=== PATIENT | female | born 1950 | race Hispanic/Latino ===

== ENCOUNTER 2016-06-09 12:57 | Observation (INO) | payer MEDICARE, OTHER ==
[2016-06-09 13:04] VITALS: BMI 37.0
[2016-06-09] MEDS ORDERED: Insulin Regular 1 UNITS/0.01 ML ML SC STA (13:40)
--- NOTE | 2016-06-09 13:44 | ED PDOC ---
Arrival/HPI - General Chief Complaint: Dizziness/Lightheaded Time Seen by Provider: 06/09/16 13:00 Historian: Patient - History of Present Illness Narrative History of Present Illness (Text): 06/09/16 13:26 A 66 year old female, whose past medical history includes breast cancer, diabetes, hypertension, neuropathy, Renal disease, and DKA, is sent to the emergency department from Bone scan for dizziness and nausea. Patient reports she was in the hospital told for a follow up Bone Scan and while she was laying flat she began to feel dizzy. She sat up for a while thinking the symptoms would go away but the dizziness worsened and she began to fell sweaty and developed nausea. She notes the dizziness is worse when turning his head. Patient does mention this morning when walking up she did feel more tired than usual, but she denies any fever, vomiting, appetite change, or any other complaints at this time. Patient is not a smoker, drinker or drug user. PMD: Dr. Fisher Equipment Operator [employer]: Dr. Aguilera Professor Of Biochemistry: Dr. Joel Oncologist: Dr. Rich 06/09/16 20:24 Time/Duration: Prior to Arrival Symptom Onset: Sudden Symptom Course: Unchanged Quality: Other Activities at Onset: Rest Modifying Factors (Text): worse when turning head Context: Other Associated Symptoms (Text): nausea Past Medical History - Provider Review Nursing Documentation Reviewed: Yes - Infectious Disease Hx of Infectious Diseases: None - Tetanus Immunization Tetanus Immunization: Unknown - Cardiac Hx Cardiac Disorders: Yes Hx Angina: No Hx Cardiac Arrhythmia: No Hx Circulatory Problems: No Hx Congestive Heart Failure: No Hx Heart Murmur: No Hx Heart Transplant: No Hx Hypertension: Yes Hx Internal Defibrillator: No Hx Mitral Valve Prolapse: No Hx Pacemaker: No Hx Peripheral Edema: No Hx Peripheral Vascular Disease: No - Pulmonary Hx Respiratory Disorders: Yes Hx Asthma: Yes Hx Bronchitis: No Hx Chronic Obstructive Pulmonary Disease (COPD): Yes Hx Emphysema: No Hx Pneumonia: No Hx Respiratory Aspiration: No Hx Respiratory Tract Infection: No Hx Sleep Apnea: No Hx Tuberculosis: No - Neurological Hx Neurological Disorder: No Hx Alzheimer's Disease: No HX Cerebrovascular Accident: No Hx Dementia: No Hx Dizziness: No Hx Meningitis: No Hx Migraine: No Hx Parkinson's Disease: No Hx Seizures: No Hx Transient Ischemic Attacks (TIA): No - HEENT Hx HEENT Disorder: No Hx Blind: No Hx Cataracts: No Hx Deafness: No Hx Difficulty Chewing: No Hx Epistaxis: No Hx Glaucoma: No Hx Macular Degeneration: No - Renal Hx Renal Disorder: Yes (history of nephrostomy) Hx Dialysis: No Hx Kidney Stones: No Hx Neurogenic Bladder: No Hx Pyelonephritis: No Hx Renal Cancer: No Hx Renal Failure: No - Endocrine/Metabolic Hx Endocrine Disorders: Yes Hx Adrenal Cancer: No Hx Diabetes Insipidus: No Hx Diabetes Mellitus Type 1: No Hx Diabetes Mellitus Type 2: Yes Hx Hyperthyroidism: No Hx Hypothyroidism: Yes Hx Systemic Lupus Erythematosus: No - Hematological/Oncological Hx Blood Disorders: Yes Hx AIDS: No Hx Anemia: No Hx Cancer: Yes (left breast) Hx Chemotherapy: No Hx Cirrhosis: No Hx Hemophilia: No Hx Hepatitis A: No Hx Hepatitis B: No Hx Hepatitis C: No Hx Metastasis: No Hx Shingles: No Hx Sickle Cell Disease: No Hx Unexplained Bleeding: No - Integumentary Hx Dermatological Disorder: Yes Hx Basal Cell Carcinoma: No Hx Eczema: Yes Hx Melanoma: No Hx Psoriasis: No Hx Squamous Cell Carcinoma: No - Musculoskeletal/Rheumatological Hx Musculoskeletal Disorders: Yes Hx Arthritis: No Hx Back Pain: No Hx Degenerative Joint Disease: No Hx Falls: No Hx Fractures: No Hx Gout: No Hx Herniated Disk: No Hx Myasthenia Gravis: No Hx Osteoarthritis: Yes (knees hips) Hx Osteomyelitis: No Hx Osteoporosis: No Hx Rhabdomyolysis: No Hx Spinal Stenosis: No Hx Unsteady Gait: No - Gastrointestinal Hx Gastrointestinal Disorders: Yes Hx Colostomy: No Hx Crohn's Disease: No Hx Diverticulitis: No Hx Gall Bladder Disease: No Hx Gastroesophageal Reflux: Yes Hx Gastrointestinal Ulcer: No Hx Ileostomy: No Hx Liver Failure: No Hx Pancreatitis: No HX Swallowing Problems: No - Genitourinary/Gynecological Hx Genitourinary Disorders: Yes Hx Hematuria: No Hx Incontinence: Yes (occassional at night) Hx Prostate Problems: No Hx Sexually Transmitted Diseases: No Hx Urinary Tract Infection: No - Psychiatric Hx Psychophysiologic Disorder: No Hx Anxiety: No Hx Bipolar Disorder: No Hx Depression: No Hx Emotional Abuse: No Hx Hallucinations: No Hx Panic Disorder: No Hx Post Traumatic Stress Disorder: No Hx Psychosis: No Hx Physical Abuse: No Hx Schizophrenia: No Hx Sexual Abuse: No Hx Substance Use: No - Past Surgical History Past Surgical History: No Previous - Surgical History Hx Amputation: No Hx Appendectomy: No Hx Cardiac Catheterization: No Hx Cholecystectomy: No Hx Coronary Stent: No Hx Gastric Bypass Surgery: No Hx Hysterectomy: No Hx Joint Replacement: No Hx Kidney Transplant: No Hx Liver Transplant: No Hx Mastectomy: No Hx Musculoskeletal Surgery: No Hx Open Heart Surgery: No Hx Orthopedic Surgery: No Hx Splenectomy: No Hx Tonsillectomy: Yes Hx Valve Replacement: No - Anesthesia Hx Anesthesia: No Hx Anesthesia Reactions: No Hx Malignant Hyperthermia: No - Suicidal Assessment Feels Threatened In Home Enviroment: No Family/Social History - Physician Review Nursing Documentation Reviewed: Yes Family/Social History: Unknown Family HX Smoking Status: Former Smoker Hx Alcohol Use: No Hx Substance Use: No Hx Substance Use Treatment: No Allergies/Home Meds Allergies/Adverse Reactions: Allergies No Known Allergies Allergy (Verified 06/09/16 13:14) Home Medications: Home Meds Medication Instructions Recorded Confirmed Dexlansoprazole [Dexilant] 01/22/14 01/22/14 Insulin Detemir [Levemir Flexpen] 34 unit SC 01/22/14 01/22/14 Ondansetron [Zofran Tab] 4 mg 01/22/14 01/22/14 Pravastatin Sodium [Pravastatin] 20 mg PO HS 01/22/14 01/23/14 Pregabalin [Lyrica] 50 mg PO TID 01/22/14 01/23/14 Carvedilol 12.5 mg PO 01/23/14 01/23/14 Carvedilol 12.5 mg PO BID 01/23/14 01/23/14 Dexlansoprazole [Dexilant] 60 mg PO DAILY 01/23/14 01/23/14 HCTZ/Losartan Potassium [Hyzaar 1 tab PO 01/23/14 01/23/14 12.5 mg-50 mg] Metoclopramide HCl [Reglan] 5 mg PO AMHS 01/23/14 01/23/14 Mometasone [Asmanex Twisthaler 110 01/23/14 01/23/14 MCG] Montelukast [Singulair] 10 mg PO DAILY 01/23/14 01/23/14 Ropinirole HCl [Ropinirole ER] 2 mg PO HS 01/23/14 01/23/14 Review of Systems - Physician Review All systems were reviewed & negative as marked: Yes - Review of Systems Constitutional: absent: Fevers Gastrointestinal: Nausea. absent: Vomiting, Appetite Changes Neurological: Dizziness Endocrine: Diaphoresis Physical Exam Vital Signs Reviewed: Yes Vital Signs Temp Pulse Resp BP Pulse Ox 06/09/16 17:00 66 18 166/81 H 96 06/09/16 15:45 69 18 168/89 H 96 06/09/16 12:58 97.8 F 74 17 176/91 H 96 Temperature: Afebrile Blood Pressure: Hypertensive Pulse: Regular Respiratory Rate: Normal Appearance: Positive for: Well-Appearing, Non-Toxic, Comfortable Pain Distress: None Mental Status: Positive for: Alert and Oriented X 3 Finger Stick Blood Glucose: 389 - Systems Exam Head: Present: Atraumatic, Normocephalic Pupils: Present: Other (cataract left eye) Extroacular Muscles: Present: EOMI Conjunctiva: Present: Normal Mouth: Present: Moist Mucous Membranes Neck: Present: Normal Range of Motion Respiratory/Chest: Present: Clear to Auscultation, Good Air Exchange. No: Respiratory Distress, Accessory Muscle Use Cardiovascular: Present: Regular Rate and Rhythm, Normal S1, S2. No: Murmurs Abdomen: Present: Normal Bowel Sounds. No: Tenderness, Distention, Peritoneal Signs Back: Present: Normal Inspection Upper Extremity: Present: Normal Inspection. No: Cyanosis, Edema Lower Extremity: Present: Normal Inspection. No: Edema Neurological: Present: GCS=15, CN II-XII Intact, Speech Normal Skin: Present: Warm, Dry, Normal Color. No: Rashes Psychiatric: Present: Alert, Oriented x 3, Normal Insight, Normal Concentration Medical Decision Making ED Course and Treatment: 06/09/16 13:26 Impression: A 66 year old female with dizziness and nausea. Differential Diagnosis include but are not limited to: vertigo vs. electrolyte imbalance vs. intracranial abnormalities Plan: -- EKG -- Head CT -- Chest X-ray -- Labs -- Urinalysis -- Antivert, Humulin R, Zofran and IV Fluids -- Reassess and disposition Prior Visits: Notes and results from previous visits were reviewed. The patient last presented to the emergency department on 01/22/14 for evaluation of intermittent abdominal pain and nausea. Progress Notes: EKG: Ordered, reviewed, and independently interpreted the EKG. Rate : 72 BPM Rhythm : NSR 06/09/16 14:[address]: Creator : Consuelo Barreto MD COMPARISON: None available. FINDINGS: HEMORRHAGE: No intracranial hemorrhage. BRAIN: There are mild chronic microangiopathic changes. There is no mass, mass effect or abnormal extra-axial fluid collection. There are coarse atherosclerotic calcifications in the cavernous carotid arteries. VENTRICLES: There is moderate global parenchymal volume loss and proportionate enlargement of the ventricles and cortical sulci, slightly advanced for the patient's age. CALVARIUM: The skull base and calvarium are normal. PARANASAL SINUSES: Predominantly clear. MASTOID AIR CELLS: Predominantly clear. OTHER FINDINGS: None. IMPRESSION: No acute intracranial abnormality. 06/09/16 15:50 Chest X-ray: Creator : Nito Salinas MD COMPARISON: 01/22/2014 FINDINGS: LUNGS: No active pulmonary disease. PLEURA: No significant pleural effusion identified, no pneumothorax apparent. CARDIOVASCULAR: Normal. OSSEOUS STRUCTURES: No significant abnormalities. VISUALIZED UPPER ABDOMEN: Normal. OTHER FINDINGS: None. IMPRESSION: No active disease. 06/09/16 16:24 Dr. Fisher paged. 06/09/16 17:[address] Fisher, who is aware and agrees with the plan to place patient in observation in Telemetry. He states to get a second set of Troponin which is ordered. pt made aware of plan. pt reevaluated, feeels slightly improved but still w symptoms dx presycnope I have discussed the results and plan with the patient, who expresses understanding. Patient given the opportunity to ask question, all questions were answered and there is agreement with the plan to be admitted to the hospital. 06/09/16 20:25 06/09/16 20:26 - Lab Interpretations Lab Results: 06/09/16 13:17 06/09/16 13:17 Lab Results 06/09/16 17:03: Blood Type Confirm A POSITIVE 06/09/16 15:34: Blood Type A POSITIVE, Antibody Screen Negative, BBK History Checked No verified bt 06/09/16 13:17: WBC 7.9 D, RBC 4.62, Hgb 14.2, Hct 41.6, MCV 90.0, MCH 30.7, MCHC 34.1, RDW 13.2, Plt Count 204, MPV 11.5 H, Gran % 60.9, Lymph % (Auto) 31.0 , [place] % (Auto) 6.2 H, Eos % (Auto) 1.6, Baso % (Auto) 0.3, Gran # 4.80, Lymph # 2.4, [place] # 0.5, Eos # 0.1, Baso # 0.02, PT 9.8 L, INR 0.91 L, APTT 19.9 L, Sodium 136, Potassium 4.3, Chloride 97 L, Carbon Dioxide 26, Anion Gap 17, BUN 31 H, Creatinine 1.4, Est GFR ( Amer) 45, Est GFR (Non-Af Amer) 38, Random Glucose 335 H* D, Calcium 9.2, Total Bilirubin 0.7, AST 30, ALT 38, Alkaline Phosphatase 156 H, Troponin I < 0.01 D, Total Protein 7.8, Albumin 4.1 , Globulin 3.6, Albumin/Globulin Ratio 1.1 I have reviewed the lab results: Yes - RAD Interpretation Radiology Orders: 06/09/16 13:37 CHEST PORTABLE [RAD] Stat 06/09/16 13:38 HEAD W/O CONTRAST [CT] Stat - Medication Orders Current Medication Orders: Atorvastatin Calcium (Lipitor) 10 mg PO DIN [facility] Carvedilol (Coreg) 12.5 mg PO BID [facility] Hydrochlorothiazide (Microzide) 12.5 mg PO DAILY [facility] Sodium Chloride (Sodium Chloride 0.9%) 1,000 mls @ 150 mls/hr IV .Q6H40M [facility] Last Admin: 06/09/16 14:05 Dose: 150 MLS/HR eMAR Start Stop Document 06/09/16 14:05 OCS (Rec: 06/09/16 14:05 OCS [facility] [id number]) Intravenous Solution Start Date 06/09/16 Start Time 14:05 Insulin Detemir (Levemir) 34 unit SC ACBHS [facility] Insulin Human Regular (Humulin R High) 0 units SC ACHS [facility] PRN Reason: Protocol Losartan Potassium (Cozaar) 50 mg PO DAILY [facility] Metoclopramide HCl (Reglan) 5 mg PO AMHS [facility] Montelukast Sodium (Singulair) 10 mg PO DAILY [facility] Ondansetron HCl (Zofran Tab) 4 mg PO ACBHS PRN PRN Reason: Nausea/Vomiting Pantoprazole Sodium (Protonix Ec Tab) 40 mg PO ACB [facility] Pregabalin (Lyrica) 50 mg PO TID [facility] Ropinirole HCl (Requip) 2 mg PO HS [facility] Discontinued Medications Insulin Human Regular (Humulin R) 4 units SC STAT STA Stop: 06/09/16 13:41 Last Admin: 06/09/16 14:05 Dose: 4 UNITS Subcutaneous Admin in ER Document 06/09/16 14:05 OCS (Rec: 06/09/16 14:[address] [facility] [id number][place] Injection Site MAR Injection Site Right Deltoid Subcutaneous Administrations Document 06/09/16 14:05 OCS (Rec: 06/09/16 14:05 OCS [facility] [id number]) Charges for Administration # of Subcutaneous Administrations 1 Meclizine HCl (Antivert) 25 mg PO STAT STA Stop: 06/09/16 13:40 Last Admin: 06/09/16 14:05 Dose: 25 MG Ondansetron HCl (Zofran Inj) 4 mg IV ONCE ONE Stop: 06/09/16 13:40 Last Admin: 06/09/16 14:05 Dose: 4 MG eMAR Start Stop Document 06/09/16 14:05 OCS (Rec: 06/09/16 14:05 [id number]) Intravenous Solution Start Date 06/09/16 Start Time 14:05 End Date 06/09/16 - Scribe Statement The provider has reviewed the documentation as recorded by the Kartik Pelayo Provider Scribe Attestation: All medical record entries made by the Scribe were at my direction and personally dictated by me. I have reviewed the chart and agree that the record accurately reflects my personal performance of the history, physical exam, medical decision making, and the department course for this patient. I have also personally directed, reviewed, and agree with the discharge instructions and disposition. Disposition/Present on Arrival - Present on Arrival Any Indicators Present on Arrival: No History of DVT/PE: No History of Uncontrolled Diabetes: No Urinary Catheter: No History of Decub. Ulcer: No History Surgical Site Infection Following: None - Disposition Have Diagnosis and Disposition been Completed?: Yes Diagnosis: Pre-syncope Disposition Time: 15:40 Patient Plan: Observation Condition: STABLE
[2016-06-09 13:45] LABS: ADD MANUAL DIFF? NO
--- NOTE | 2016-06-09 13:55 | CP.PCM.PN ---
Subjective - Date & Time of Evaluation Date of Evaluation: 06/09/16 Time of Evaluation: 13:52 - Subjective Subjective: ARCH SUPPORT MAKER was called at 12:50 pm in radiology department. 66 y/o female who presented for outpatient bone scan for breast cancer. At the end of the scan, patient was lying down and became dizzy and nauseous. ARCH SUPPORT MAKER was called at this point. Patient also has insulin dependent diabetes and accucheck showed BS of 390. During examination, patient denied any lightheadedness of dizziness, chest pain, shortness of breath or abdominal pain. She continued to have nausea but did not vomit. VS: 201/91, 26, 81 Objective - Vital Signs/Intake and Output Vital Signs (last 24 hours): Temp Pulse Resp BP Pulse Ox 97.8 F 74 17 176/91 H 96 06/09/16 12:58 06/09/16 12:58 06/09/16 12:58 06/09/16 12:58 06/09/16 12:58 - Medications Medications: Current Medications Sodium Chloride (Sodium Chloride 0.9%) 1,000 mls @ 150 mls/hr IV .Q6H40M [facility] - Constitutional Appears: No Acute Distress - ENT Exam ENT Exam: Mucous Membranes Moist - Respiratory Exam Respiratory Exam: Clear to Ausculation Bilateral. absent: Rales, Rhonchi, Wheezes - Cardiovascular Exam Cardiovascular Exam: REGULAR RHYTHM, +S1, +S2. absent: Gallop, Rubs, Murmur - GI/Abdominal Exam GI & Abdominal Exam: Soft. absent: Distended, Firm, Guarding, Rigid, Tenderness - Extremities Exam Extremities Exam: absent: Pedal Edema, Tenderness - Neurological Exam Neurological Exam: Alert, Awake, Oriented x3 - Psychiatric Exam Psychiatric exam: Normal Affect, Normal Mood - Skin Skin Exam: Dry, Intact, Normal Color, Warm Assessment and Plan - Assessment and Plan (Free Text) Assessment: 1. Dizziness 2. Nausea 3. HTN 4. Hyperglycemia 5. History of DM Plan: Patient is transferred to ED with the RR team.
[2016-06-09 13:58] LABS: ALB/GLOB RATIO 1.1 (1.1-1.8); ALKALINE PHOSPHATASE 156 U/L (38-133); ALT/SGPT 38 U/L (7-56); AST/SGOT 30 U/L (15-39); BILIRUBIN,TOTAL 0.7 mg/dL (0.2-1.3); BLOOD UREA NITROGEN 31 mg/dL (7-21); CALCIUM 9.2 mg/dL (8.4-10.5); CARBON DIOXIDE 26 mmol/L (21-33); CHLORIDE 97 mmol/L (98-107); GFR AFRICAN-AMERICAN 45; POTASSIUM 4.3 mmol/L (3.6-5.0); SODIUM 136 mmol/L (132-148); TOTAL PROTEIN 7.8 g/dL (5.8-8.3)
[2016-06-09 14:01] LABS: BASO # 0.02 K/mm3 (0.0-2.0); BASO % 0.3 % (0.0-3.0); EOS # 0.1 (0.0-0.7); EOS % 1.6 % (1.5-5.0); GRAN % 60.9 % (50.0-68.0); HEMATOCRIT 41.6 % (36.0-48.0); LYMPH # 2.4 (1.2-3.4); MEAN CORPUSCULAR HEMOGLOBIN 30.7 pg (25.0-35.0); MEAN CORPUSCULAR HGB CONC 34.1 g/dl (31.0-37.0); MEAN PLATELET VOLUME 11.5 fl (7.0-11.0); MONO # 0.5 (0.1-0.6); MONO % 6.2 % (1.0-6.0); PLATELET COUNT 204 10^3/uL (120.0-450.0); RED CELL DISTRIBUTION WIDTH 13.2 % (11.5-14.5); WHITE BLOOD COUNT 7.9 10^3/ul (4.5-11.0)
[2016-06-09 14:02] LABS: GLUCOSE,RANDOM 335 mg/dL (70-110)
[2016-06-09] MEDS: Sodium Chloride 0.9% 1,000 ML IV SCH ×2 (14:05→22:59)
[2016-06-09 14:11] LABS: TROPONIN I < 0.01 ng/mL
[2016-06-09 14:14] LABS: INR 0.91 (0.93-1.08); PARTIAL THROMBOPLASTIN TIME 19.9 Seconds (23.7-30.8)
--- NOTE | 2016-06-09 14:31 | CT ---
PROCEDURE: CT HEAD WITHOUT CONTRAST. HISTORY: Dizziness COMPARISON: None available. TECHNIQUE: Axial computed tomography images were obtained through the head/brain without intravenous contrast. Radiation dose: Total exam DLP = 789.71 mGy-cm. This CT exam was performed using one or more of the following dose reduction techniques: Automated exposure control, adjustment of the mA and/or kV according to patient size, and/or use of iterative reconstruction technique. FINDINGS: HEMORRHAGE: No intracranial hemorrhage. BRAIN: There are mild chronic microangiopathic changes. There is no mass, mass effect or abnormal extra-axial fluid collection. There are coarse atherosclerotic calcifications in the cavernous carotid arteries. VENTRICLES: There is moderate global parenchymal volume loss and proportionate enlargement of the ventricles and cortical sulci, slightly advanced for the patient's age. CALVARIUM: The skull base and calvarium are normal. PARANASAL SINUSES: Predominantly clear. MASTOID AIR CELLS: Predominantly clear. OTHER FINDINGS: None. IMPRESSION: No acute intracranial abnormality.
--- NOTE | 2016-06-09 14:47 | RAD ---
HISTORY: dizziness COMPARISON: 01/22/2014 FINDINGS: LUNGS: No active pulmonary disease. PLEURA: No significant pleural effusion identified, no pneumothorax apparent. CARDIOVASCULAR: Normal. OSSEOUS STRUCTURES: No significant abnormalities. VISUALIZED UPPER ABDOMEN: Normal. OTHER FINDINGS: None. IMPRESSION: No active disease.
[2016-06-09] MEDS: Insulin Detemir 100 units/ml Vial (Levemir) SC SCH (22:11)
[2016-06-09] MEDS: Insulin Reg-HIGH-Coverage SC SCH (22:12)
--- NOTE | 2016-06-09 23:47 | CP.PCM.PN ---
Subjective - Date & Time of Evaluation Date of Evaluation: 06/09/16 Time of Evaluation: 23:46 - Subjective Subjective: Nurse tells that patient's BP is elevated -181/82. Patient is little upset , has no complaints of headache,dizziness,heaviness in head, lightheadedness, chest pain, sob, paraesthesia. States that she did not take her routine evening blood pressure medications. Medical record was reviewed. This 66 year old white woman was admitted from bone scan for nausea, dizziness , presyncope. Has PMH of DM type II, DKA, HTN,breast cancer, Obesity, Hyperthyroidism, neuropathy, knee arthritis, GERD,renal failure. Objective - Vital Signs/Intake and Output Vital Signs (last 24 hours): Temp Pulse Resp BP Pulse Ox 97.8 F 82 18 181/82 H 98 06/09/16 12:58 06/09/16 22:11 06/09/16 21:00 06/09/16 22:11 06/09/16 21:00 - Medications Medications: Current Medications Atorvastatin Calcium (Lipitor) 10 mg PO DIN [facility] Carvedilol (Coreg) 12.5 mg PO BID [facility] Hydrochlorothiazide (Microzide) 12.5 mg PO DAILY [facility] Sodium Chloride (Sodium Chloride 0.9%) 1,000 mls @ 150 mls/hr IV .Q6H40M [facility] Last Admin: 06/09/16 22:59 Dose: Not Given Insulin Detemir (Levemir) 34 unit SC ACBHS [facility] Last Admin: 06/09/16 22:11 Dose: 34 unit Insulin Human Regular (Humulin R High) 0 units SC ACHS [facility] PRN Reason: Protocol Last Admin: 06/09/16 22:12 Dose: Not Given Losartan Potassium (Cozaar) 50 mg PO DAILY [facility] Metoclopramide HCl (Reglan) 5 mg PO AMHS [facility] Last Admin: 06/09/16 22:10 Dose: 5 mg Montelukast Sodium (Singulair) 10 mg PO DAILY [facility] Ondansetron HCl (Zofran Tab) 4 mg PO ACBHS PRN PRN Reason: Nausea/Vomiting Pantoprazole Sodium (Protonix Ec Tab) 40 mg PO ACB [facility] Pregabalin (Lyrica) 50 mg PO TID [facility] Ropinirole HCl (Requip) 2 mg PO HS [facility] Last Admin: 06/09/16 22:10 Dose: 2 mg - Labs Labs: PT 9.8 Seconds (9.9-11.8) L 06/09/16 13:17 INR 0.91 (0.93-1.08) L 06/09/16 13:17 APTT 19.9 Seconds (23.7-30.8) L 06/09/16 13:17 - Constitutional Appears: Well, No Acute Distress - Head Exam Head Exam: ATRAUMATIC, NORMAL INSPECTION, NORMOCEPHALIC Additional comments: Obese person. - Eye Exam Eye Exam: Normal appearance - ENT Exam ENT Exam: Normal External Ear Exam - Neck Exam Neck Exam: Normal Inspection - Respiratory Exam Respiratory Exam: NORMAL BREATHING PATTERN - Cardiovascular Exam Cardiovascular Exam: absent: JVD - GI/Abdominal Exam GI & Abdominal Exam: absent: Distended - Rectal Exam Rectal Exam: Deferred - Extremities Exam Extremities Exam: Normal Inspection - Back Exam Back Exam: NORMAL INSPECTION - Neurological Exam Neurological Exam: Alert, Oriented x3 - Psychiatric Exam Psychiatric exam: Normal Affect, Normal Mood - Skin Skin Exam: Normal Color Assessment and Plan - Assessment and Plan (Free Text) Assessment: A/P:Elevated blood pressure reading. Resolved nausea,dizziness. HTN. DM type II. Obesity. Knee arthritis. Hyperlipidemia. Hyperthyroidism. Hx renal failure. GERD. Coreg 12.5 mg PO STAT. Clonidine 0.2 mg PO STAT. Continue present management.
[2016-06-10] MEDS: Sodium Chloride 0.9% 1,000 ML IV SCH (04:13)
[2016-06-10 06:11] VITALS: O2SAT 93
[2016-06-10] MEDS ORDERED: Non Formulary Medication (Hctz/Losartan Potassium [Hyzaar 12.5 Mg-50 Mg] 1 TAB) PO SCH (07:30)
[2016-06-10] MEDS ORDERED: Pantoprazole 40 mg EC Tab PO SCH (07:30)
[2016-06-10] MEDS: Insulin Reg-HIGH-Coverage SC SCH ×2 (08:06→12:14)
[2016-06-10] MEDS: Insulin Detemir 100 units/ml Vial (Levemir) SC SCH (08:07)
[2016-06-10] MEDS ORDERED: Sodium Chloride 0.9% 1,000 ML IV SCH (08:27)
--- NOTE | 2016-06-10 09:55 | HP ---
HISTORY OF PRESENT ILLNESS: A 66-year-old white female with history of breast cancer, insulin-depend ent diabetes mellitus and hypertension. The patient came in complaining of severe nausea, vomiting a nd dizziness. The patient was seen in the ER, had a CT of the head done, laboratory data, 2 troponin s, EKGs all negative. The patient still had severe vertiginous symptoms and was not able to stand wi thout falling; had severe nausea and vomiting, was admitted to the hospital, was hydrated and treated with meclizine. PHYSICAL EXAMINATION: GENERAL: Shows a well-developed, but obese white female with hyperglycemia. She has bilateral strab ismus and otherwise she is more comfortable the following morning. HEENT: Essentially within normal limits. HEART: Regular sinus rhythm, no murmurs. CHEST: Clear to auscultation and percussion. ABDOMEN: Obese, but benign. EXTREMITIES: Without cyanosis, clubbing or edema. NEUROLOGIC: Grossly intact except for some positive Romberg sign. PLAN: To continue meclizine, hydrate the patient, control her blood sugars and start some physical t herapy. Discharge home if she is tolerating her therapy and able to keep down liquids and solids. IMPRESSION: Severe vertigo and hyperglycemia. REVIEW OF SYSTEMS: A 12-point review of systems otherwise is remarkable only for nausea and dizzines s. Symptoms started approximately 1 day, the day of admission. The patient has no history of tobacco or alcohol abuse and she has no contributing family history. Niko Fisher MD cc: [id number] TT: 06/10/2016 09:53:58 il
[2016-06-10 14:00] VITALS: RESP 18
[2016-06-10 17:57] VITALS: BP 160/72; PULSE 75; TEMP 97.6
--- NOTE | 2016-06-10 18:20 | CARD ---
APPROVED REPORT EKG Measurement Heart [id number] <Conclusion> Normal sinus rhythm Normal ECG
--- NOTE | 2016-06-30 10:32 | DS ---
The patient is a 66-year-old white female admitted on 06/09/16, discharged home on 06/10/16. The patie nt came to the Emergency Room. The patient had history of breast cancer, diabetes, hypertension, oumar al disease came to the Emergency Room from bone scan after having dizziness and nausea. She was lyin g flat and became dizzy. Symptoms worsened and she became sweaty, and was sent from the bone scan to the Emergency Room for evaluation. The patient was admitted to the hospital. Her oncologist is Dr. Rich. Her medical support specialist is Dr. Daysi copeland, and she also sees Dr. Aguilera for her nephrology. The [facility] was [facility]. Blood pressure was controlled. Nausea and vomiting slowly subsided over time. The patient did have a CT of the head done, which was unremarkable and negative. LABORATORY DATA: Remained stable with hemoglobin 14.2. Blood sugars were controlled in the low 200s -high 100 range. The troponins were negative. Eventually, the patient's symptoms subsided. She will be discharged home in improved condition. FINAL DISCHARGE DIAGNOSES: On this patient will be vertigo, history of breast cancer, diabetes vivii tus, renal insufficiency, hypertension. The patient was discharged home in improved condition to be followed as an outpatient. FINAL DISCHARGE DIAGNOSES: Vertigo and comorbid medical conditions. Niko Fisher MD cc: [id number] TT: 06/30/2016 10:32:10 jn
== END 2016-06-10 17:58 | disposition home or self-care (01) ==
LOC: ED 12:57 → ERH 17:19 → 2RNO 21:24
PROVIDERS: ADMIT Internal Medicine; ATTEND Internal Medicine
DX: E11.65 Type 2 diabetes mellitus with hyperglycemia (principal); R42 Dizziness and giddiness; Z85.3 Personal history of malignant neoplasm of breast; I10 Essential (primary) hypertension; E11.40 Type 2 diabetes mellitus with diabetic neuropathy, unspecified; M17.9 Osteoarthritis of knee, unspecified; K21.9 Gastro-esophageal reflux disease without esophagitis; E66.9 Obesity, unspecified; E05.90 Thyrotoxicosis, unspecified without thyrotoxic crisis or storm; E78.5 Hyperlipidemia, unspecified
CPT/HCPCS: 70450; 71010; 80053; 84484; 85025; 85610; 85730; 86850; 86900; 93005; 96372; 97116; 97162; 99285; G0378; G8978; G8979; G8980; J2405; J7040

== ENCOUNTER 2018-01-19 12:13 | Day surgery (SDC) | payer MEDICARE, OTHER ==
[2018-01-04 13:47] VITALS: BMI 39.5
[2018-01-19 12:55] LABS: BASO # 0.03 K/mm3 (0.0-2.0); BASO % 0.7 % (0.0-3.0); EOS # 0.1 (0.0-0.7); EOS % 3.2 % (1.5-5.0); GRAN # 2.72 (1.4-6.5); GRAN % 66.8 % (50.0-68.0); HEMOGLOBIN 12.2 g/dL (12.0-16.0); LYMPH # 0.7 (1.2-3.4); LYMPH % 18.2 % (22.0-35.0); MEAN CORPUSCULAR HEMOGLOBIN 34.5 pg (25.0-35.0); MEAN CORPUSCULAR HGB CONC 33.8 g/dl (31.0-37.0); MEAN PLATELET VOLUME 10.3 fl (7.0-11.0); MONO # 0.5 (0.1-0.6); MONO % 11.1 % (1.0-6.0); RBC 3.54 10^6/uL (3.5-6.1); RED CELL DISTRIBUTION WIDTH 15.1 % (11.5-14.5); WHITE BLOOD COUNT 4.1 10^3/uL (4.5-11.0)
[2018-01-19 13:03] LABS: CALCIUM 9.5 mg/dL (8.4-10.5)
[2018-01-19 13:04] LABS: INR 0.93; PARTIAL THROMBOPLASTIN TIME 24.5 Seconds (25.1-36.5); PROTHROMBIN TIME 10.7 SECONDS (9.4-12.5)
[2018-01-19] MEDS ORDERED: Lidocaine 2% Inj (20ml) ONE (14:02)
[2018-01-19] MEDS ORDERED: Midazolam 2 MG/2 ML VIAL ONE ×2 (14:41→14:51)
[2018-01-19] MEDS ORDERED: Sodium Chloride 0.45% 1,000 ML IV SCH (15:45)
[2018-01-19 15:51] VITALS: TEMP 98
[2018-01-19 16:32] VITALS: RESP 18; O2SAT 94
[2018-01-19 16:57] VITALS: BP 146/74; PULSE 80
--- NOTE | 2018-01-19 17:49 | VASCULAR ---
PROCEDURE: Ultrasound and fluoroscopic right internal jugular venous access port. CLINICAL HISTORY: Metastatic breast carcinoma.Venous port for chemotherapy. PHYSICIAN(S): Toby Garcia M.D. TECHNIQUE: The relative risks and indications of the procedure were explained to the patient and consent obtained. The patient was placed supine on the arteriogram table and the right neck and chest prepped and draped in the usual sterile fashion. Conscious sedation monitoring was provided throughout the procedure by a nurse. Antibiotics were given prior to the procedure. Under direct ultrasound guidance, the right internal jugular vein was punctured with a micro-puncture set. A 0.035 angled Glidewire was advanced into the IVC. A 4 cm incision was made over the right clavicle and the pocket blunted dissected. A 8 Tristanian single-lumen catheter, 26 cm long, was advanced to the SVC/RA junction. The catheter was trimmed and attached to the port. The port aspirates and injects easily. The port was placed in the pocket and closed in 2 layers. The patient tolerated the procedure well. IMPRESSION: Ultrasound and fluoroscopically placed right internal jugular venous access port.
== END 2018-01-19 17:15 | disposition home or self-care (01) ==
LOC: SDS 12:13
PROVIDERS: ATTEND Radiology Vascular & Interventional Radiology
DX: C50.912 Malignant neoplasm of unspecified site of left female breast (principal); C79.51 Secondary malignant neoplasm of bone; I10 Essential (primary) hypertension; E78.5 Hyperlipidemia, unspecified; K21.9 Gastro-esophageal reflux disease without esophagitis; E11.9 Type 2 diabetes mellitus without complications; Z79.4 Long term (current) use of insulin
CPT/HCPCS: 36415; 36561; 76937; 77001; 80048; 85025; 85610; 85730; 99152; 99153; C1769; C1788; J0690; J1644; J2250; J2405; J3010; J7030; J7120

== ENCOUNTER 2018-02-27 10:40 | Inpatient (IN) | payer MEDICARE, OTHER ==
[2018-02-27 10:58] VITALS: BMI 38.0
[2018-02-27] MEDS ORDERED: Sodium Chloride 0.9% 1,000 ML IV STA (11:29)
--- NOTE | 2018-02-27 11:32 | ED PDOC ---
Arrival/HPI - General Chief Complaint: Weakness/Neurological Deficit Time Seen by Provider: 02/27/18 10:56 Historian: Patient - History of Present Illness Narrative History of Present Illness (Text): 02/27/18 11:29 67 year old female, whose past medical history includes breast cancer (receiving chemotherapy), diabetes, hypertension, neuropathy, Renal disease, and DKA, is sent to the emergency department from Dr. Rich's office for generalized weakness and a hypoglycemia since yesterday. Patient had a blood sugar level of 55 and was given Gingerale and a donut at Dr. Rich's office. Patient states she has been feeling weak since yesterday and states her legs feel "rubbery" and "shaky". She reports secondary symptoms of shortness of breath, diarrhea, nausea, and loss of appetite due to her chemotherapy. Patient denies fevers, chills, headache, dizziness, chest pain, cough, abdominal pain, vomiting, back pain, neck pain, or any other complaint. PMD: Dr. Fisher Retail Warehouse Supervisor: Dr. Singh Enrollment Management Coordinator: Dr. Joel Oncology: Dr. Espinoza Time/Duration: 24 hours Symptom Onset: Gradual Symptom Course: Unchanged Activities at Onset: Light Context: Home Past Medical History - Provider Review Nursing Documentation Reviewed: Yes - Infectious Disease Hx of Infectious Diseases: None - Tetanus Immunization Tetanus Immunization: Unknown - Reproductive Menopause: Yes - Cardiac Hx Hypertension: Yes - Pulmonary Hx Chronic Obstructive Pulmonary Disease (COPD): Yes - Neurological Hx Paralysis: Yes - HEENT Hx HEENT Disorder: Yes Hx Blind: No Hx Cataracts: Yes - Renal Hx Renal Failure: No - Endocrine/Metabolic Hx Diabetes Mellitus Type 2: Yes Hx Hypothyroidism: Yes - Hematological/Oncological Hx Blood Transfusions: No - Integumentary Hx Dermatological Disorder: Yes Hx Eczema: Yes - Musculoskeletal/Rheumatological Hx Musculoskeletal Disorders: Yes - Gastrointestinal Hx Gastrointestinal Disorders: Yes Hx Gastroesophageal Reflux: Yes - Genitourinary/Gynecological Hx Genitourinary Disorders: Yes - Psychiatric Hx Emotional Abuse: No Hx Physical Abuse: No Hx Substance Use: No - Past Surgical History Past Surgical History: No Previous - Surgical History Hx Amputation: No Hx Appendectomy: No Hx Cardiac Catheterization: No Hx Cholecystectomy: No Hx Coronary Stent: No Hx Gastric Bypass Surgery: No Hx Hysterectomy: No Hx Inguinal Hernia Repair: No Hx Joint Replacement: No Hx Kidney Transplant: No Hx Liver Transplant: No Hx Mastectomy: No Hx Musculoskeletal Surgery: No Hx Open Heart Surgery: No Hx Orthopedic Surgery: No Hx Splenectomy: No Hx Valve Replacement: No - Anesthesia Hx Anesthesia Reactions: No Hx Malignant Hyperthermia: No - Suicidal Assessment Feels Threatened In Home Enviroment: No Family/Social History - Physician Review Nursing Documentation Reviewed: Yes Family/Social History: No Known Family HX Smoking Status: Former Smoker Hx Alcohol Use: No Hx Substance Use: No Hx Substance Use Treatment: No Allergies/Home Meds Allergies/Adverse Reactions: Allergies No Known Allergies Allergy (Verified 06/09/16 13:14) Home Medications: Home Meds Medication Instructions Recorded Confirmed Pregabalin [Lyrica] 50 mg PO BID 01/22/14 02/27/18 Ropinirole HCl [Ropinirole ER] 2 mg PO HS 01/23/14 02/27/18 Aspirin [Low Dose Aspirin EC] 81 mg PO DAILY 06/10/16 02/27/18 Febuxostat [Uloric] 40 mg PO DAILY 06/10/16 02/27/18 L. Acidophilus/Bifid. Animalis 1 each PO DAILY 06/10/16 02/27/18 [One-A-Day Trubiotics 2 Bill Cp] Levothyroxine [Synthroid] 175 mcg PO DAILY 06/10/16 02/27/18 Potassium Citrate [Potassium 5 meq PO BID 06/10/16 02/27/18 Citrate ER] Budesonide [Pulmicort] 1 puff INH DAILY 01/04/18 02/27/18 Calcium Carbonate/Vitamin D3 1 tab PO DAILY 01/04/18 02/27/18 [Calcium 500-Vit D3 600 Caplet] Carvedilol [Coreg] 12.5 mg PO BID 01/04/18 02/27/18 Denosumab [Xgeva] 120 mg IM Q30D 01/04/18 02/27/18 Insulin Detemir [Levemir] 52 unit SC BID 01/04/18 02/27/18 Insulin Lispro [humALOG] 28 units SC TID 01/04/18 02/27/18 Losartan Potassium 50 mg PO DAILY 01/04/18 02/27/18 Pravastatin Sodium [Pravachol] 20 mg PO DAILY 01/04/18 02/27/18 Tiotropium Br/Olodaterol HCl 2 puff INH DAILY 01/04/18 02/27/18 [Stiolto Respimat Inhal [place]] Review of Systems - Physician Review All systems were reviewed & negative as marked: Yes - Review of Systems Constitutional: Other (generalized weakness). absent: Fevers Respiratory: SOB Cardiovascular: absent: Chest Pain Gastrointestinal: Diarrhea, Nausea. absent: Abdominal Pain, Vomiting Genitourinary Female: absent: Hematuria Musculoskeletal: absent: Back Pain, Neck Pain Neurological: absent: Headache, Dizziness Physical Exam Vital Signs Reviewed: Yes Vital Signs Temp Pulse Resp BP Pulse Ox 02/27/18 10:41 97.9 F 93 H 18 182/84 H 95 Temperature: Afebrile Blood Pressure: Hypertensive Pulse: Tachycardic Respiratory Rate: Normal Appearance: Positive for: Well-Appearing, Non-Toxic, Comfortable Pain Distress: None Mental Status: Positive for: Alert and Oriented X 3 Finger Stick Blood Glucose: 139 - Systems Exam Head: Present: Atraumatic, Normocephalic Pupils: Present: Other (lazy right eye) Extroacular Muscles: Present: EOMI Conjunctiva: Present: Normal Mouth: Present: Moist Mucous Membranes Neck: Present: Normal Range of Motion Respiratory/Chest: Present: Clear to Auscultation, Good Air Exchange. No: Respiratory Distress, Accessory Muscle Use Cardiovascular: Present: Regular Rate and Rhythm, Normal S1, S2. No: Murmurs Abdomen: Present: Distention (belly was distended). No: Tenderness, Peritoneal Signs Back: Present: Normal Inspection Upper Extremity: Present: Normal Inspection. No: Cyanosis, Edema Lower Extremity: Present: Normal Inspection. No: Edema (no bilateral lower extremity edema) Neurological: Present: GCS=15, CN II-XII Intact, Speech Normal Skin: Present: Warm, Dry, Normal Color. No: Rashes Psychiatric: Present: Alert, Oriented x 3, Normal Insight, Normal Concentration Medical Decision Making ED Course and Treatment: 02/27/18 11:33 Impression: 67 year old female who presents to the emergency department complaining of generalized weakness and hypoglycemia. Differential Diagnosis included but are not limited to: hypoglycemia neutropenic fever Plan: -- VBG -- Labs -- Chest X-ray -- IV fluids -- Blood Culture -- Urine Culture -- Urinalysis -- Reassess and disposition Prior Visits: Notes and results from previous visits were reviewed. Progress Notes 02/27/18 13:[address] Fisher who agrees with plan and will accept patient under observation. - Lab Interpretations I have reviewed the lab results: Yes - RAD Interpretation Narrative RAD Interpretations (Text): 02/27/18 13:33 Chest X-ray reviewed by radiologist, shows: IMPRESSION: No pulmonary disease. COPD. - EKG Interpretation EKG Interpretation (Text): 02/27/18 14:09 EKG done at 10:48 reviewed, shows: NSR at 96 bpm, no ST elevation, no T wave inversion. Interpreted by ED Physician: Yes Type: 12 lead EKG - Scribe Statement The provider has reviewed the documentation as recorded by the Scribe Kristal Schaeffer Provider Scribe Attestation: All medical record entries made by the Scribe were at my direction and personally dictated by me. I have reviewed the chart and agree that the record accurately reflects my personal performance of the history, physical exam, medical decision making, and the department course for this patient. I have also personally directed, reviewed, and agree with the discharge instructions and disposition. Disposition/Present on Arrival - Present on Arrival History of DVT/PE: No History of Uncontrolled Diabetes: No Urinary Catheter: No History of Decub. Ulcer: No History Surgical Site Infection Following: None - Disposition
[2018-02-27 12:11] LABS: VENOUS BLOOD GAS BASE EXCESS -5.1 mmol/L (0.0-2.0); VENOUS BLOOD GAS PO2 51 mm/Hg (30-55)
[2018-02-27 12:19] LABS: BASO # 0.02 K/mm3 (0.0-2.0); BASO % 0.6 % (0.0-3.0); EOS % 0.9 % (1.5-5.0); GRAN # 2.38 (1.4-6.5); GRAN % 68.3 % (50.0-68.0); HEMOGLOBIN 10.8 g/dL (12.0-16.0); LYMPH # 0.5 (1.2-3.4); LYMPH % 13.8 % (22.0-35.0); MEAN CELL VOLUME 99.7 fl (80.0-105.0); MEAN CORPUSCULAR HEMOGLOBIN 31.9 pg (25.0-35.0); MEAN PLATELET VOLUME 10.6 fl (7.0-11.0); MONO # 0.6 (0.1-0.6); MONO % 16.4 % (1.0-6.0); RBC 3.39 10^6/uL (3.5-6.1); RED CELL DISTRIBUTION WIDTH 14.9 % (11.5-14.5); WHITE BLOOD COUNT 3.5 10^3/uL (4.5-11.0)
--- NOTE | 2018-02-27 12:19 | RAD ---
Date of service: 02/27/2018 HISTORY: weakness COMPARISON: 06/09/2016. FINDINGS: Right-sided central venous catheter terminates at the cavoatrial junction LUNGS: The lungs are hyperinflated and there is peribronchial thickening with chronic changes in both lungs. There are stable calcified nodules in the left mid lung PLEURA: No pleural effusions or pneumothorax. CARDIOVASCULAR: The heart is normal in size. No aortic atherosclerotic calcification present. OSSEOUS STRUCTURES: Within normal limits for the patient's age. VISUALIZED UPPER ABDOMEN: Normal. OTHER FINDINGS: None. IMPRESSION: No active pulmonary disease. COPD.
[2018-02-27 12:30] LABS: ALB/GLOB RATIO 1.2 (1.1-1.8); ALBUMIN 3.8 g/dL (3.0-4.8); ALT/SGPT 49 U/L (7-56); AST/SGOT 43 U/L (14-36); BLOOD UREA NITROGEN 19 mg/dL (7-21); CALCIUM 8.5 mg/dL (8.4-10.5); GFR NON-AFRICAN AMERICAN 55
[2018-02-27 12:32] LABS: URINE BILIRUBIN SMALL (NEGATIVE); URINE BLOOD TRACE-INTACT (NEGATIVE); URINE GLUCOSE (UA) NEGATIVE (NEGATIVE); URINE LEUKOCYTE ESTERASE MODERATE Leu/uL (NEGATIVE); URINE PROTEIN 100 mg/dL (<30 mg/dL); URINE UROBILINOGEN 0.2 E.U./dL (<1 E.U./dL)
[2018-02-27 12:33] LABS: URINE APPEARANCE SL CLOUDY (CLEAR); URINE COLOR LIGHT BROWN (YELLOW)
[2018-02-27 12:38] LABS: URINE BACTERIA MANY /hpf; URINE COARSE GRANULAR CAST SMALL /hpf; URINE FINE GRANULAR CAST 0 - 2 /hpf; URINE WBC 20 - 25 /hpf (0-6)
[2018-02-27 12:39] LABS: URINE AMORPHOUS SEDIMENT SMALL /hpf
[2018-02-27 12:40] LABS: B-TYPE NATRIURETIC PEPTIDE 240 pg/mL (0-450); TROPONIN I < 0.01 ng/mL
[2018-02-27] MEDS ORDERED: cefTRIAXone 1 gm 1 GM/100 ML BAG IVPB STA (12:48)
[2018-02-27 16:11] LABS: VENOUS BLOOD GAS BASE EXCESS -3.2 mmol/L (0.0-2.0); VENOUS BLOOD GAS PO2 119 mm/Hg (30-55); VENOUS BLOOD PH 7.33 (7.32-7.43)
--- NOTE | 2018-02-27 20:39 | CARD ---
APPROVED REPORT Date of service: 02/27/2018 EKG Measurement Heart [id number] <Conclusion> Normal sinus rhythm Inferior infarct, age undetermined Abnormal ECG
[2018-02-27] MEDS ORDERED: Influenza Vaccine 60 mcg/0.5 mL SYR (4YR UP) IM ONE (20:58)
[2018-02-27] MEDS ORDERED: Dextrose 50% SYRINGE Inj (50 ml) IV PRN (21:39)
[2018-02-27 22:09] VITALS: RESP 20
[2018-02-28] MEDS: Insulin Lispro (humaLOG) LOW Coverage SC SCH ×5 (02:51→22:00)
[2018-02-28] MEDS: Levothyroxine 175 MCG TAB PO SCH (07:15)
[2018-02-28] MEDS: Budesonide 0.5 mg/2 ml Inhal Susp UD IH SCH ×2 (07:19→20:09)
[2018-02-28] MEDS: Arformoterol 15 mcg/2 ml Inh Sol IH SCH ×2 (07:19→20:09)
[2018-02-28] MEDS ORDERED: [UNRECOGNIZED DRUG - OTHER] INH SCH (10:00)
[2018-02-28] MEDS ORDERED: Levothyroxine 150 MCG TAB PO SCH (10:00)
[2018-02-28] MEDS ORDERED: FEBUXOSTAT 40 MG PO SCH (10:00)
[2018-02-28] MEDS ORDERED: Calcium-Vit D 250 mg-125 Units Tab UD PO SCH (10:00)
[2018-02-28] MEDS ORDERED: Levothyroxine 175 MCG TAB PO SCH (10:00)
[2018-02-28] MEDS ORDERED: cefTRIAXone 1 gm 1 GM/100 ML BAG IVPB SCH (10:00)
[2018-02-28] MEDS ORDERED: OLODATEROL HCL INH SCH (10:00)
[2018-02-28] MEDS ORDERED: BUDESONIDE INH SCH (10:00)
[2018-02-28] MEDS ORDERED: TIOTROPIUM BR INH SCH (10:00)
[2018-02-28] MEDS ORDERED: POTASSIUM CITRATE 5 MEQ PO SCH (10:00)
[2018-02-28] MEDS: Insulin Detemir 100 units/ml Vial (Levemir) SC SCH ×2 (11:06→17:57)
[2018-02-28] MEDS: Lactobacillus Acidophilus 500 MU Cap PO SCH (11:07)
[2018-02-28] MEDS: Tiotropium 18 mcg Cap For Inhalation IH SCH ×2 (11:07→11:43)
--- NOTE | 2018-02-28 11:22 | HP ---
DATE OF EXAM: 02/27/2018 CHIEF COMPLAINT: A 67-year-old white female with history of breast cancer. Patient of Dr. Arredondos, on chemotherapy. HISTORY OF PRESENT ILLNESS: The patient has had some episodes of shortness of breath, weakness, difficulty in walking, severe fatigue, possible urinary tract infection. She is getting active chemo for breast cancer. She has history of insulin-dependent diabetes mellitus, hypertension, neuropathy, history of renal disease. She was found to be hypoglycemic and severe weakness in Dr. Rich's office with blood sugar of 55, generalized weakness. Patient had last 48 to 72 hours. The patient denies any nausea or vomiting. The patient does complain of some weakness and dizziness and denies any palpitations or chest pain or syncopal episodes. REVIEW OF SYSTEMS: HEENT: The patient does have a recent history of an ear infection, seen by Dr. Nielson of the left ear with some drainage. Patient does have history of vertigo in the past. GASTROINTESTINAL: Patient is negative for nausea, vomiting, or diarrhea. PULMONARY: Negative for cough, sputum production, or hemoptysis. NEUROLOGIC: Positive only for weakness and dizziness. GENITOURINARY: Patient also has history of renal insufficiency in the past, seen by consultation by Dr. Singh in the past. PHYSICAL EXAMINATION: GENERAL: Shows a well developed, but obese white female, somewhat weak and lightheaded this morning. HEENT: There is no nystagmus. HEART: Regular sinus rhythm. No history of murmurs. CHEST: Clear to auscultation and percussion. ABDOMEN: Obese, but benign. EXTREMITIES: No cyanosis, clubbing, or edema. NEUROLOGIC: Grossly intact. IMPRESSION: Possible dehydration, hypoglycemia, weakness secondary to advanced breast cancer and chemotherapy, mild dehydration, and mild urinary tract infection. Niko Fisher MD
[2018-02-28] MEDS: VITAMIN D3 PO SCH (11:47)
[2018-02-28] MEDS: CALCIUM CARBONATE PO SCH (11:47)
[2018-02-28] MEDS: Insulin Lispro 1 UNITS/0.01 ML SC SCH ×3 (11:48→18:11)
[2018-02-28] MEDS: Cefepime 1gm in NS 100ml 1 GM/100 ML BAG IVPB SCH ×2 (13:36→21:41)
--- NOTE | 2018-02-28 15:00 | CON ---
DATE: 02/28/2018 The patient is seen in room 561, bed 2. CHIEF COMPLAINT: Diarrhea, and she was found to have hypoglycemia by Dr. Holland and admitted. HISTORY OF PRESENT ILLNESS: This is a 67-year-old female with history of stage IV breast cancer with bone metastases, who is on chemotherapy, history of hypertension, diabetes, neuropathy, renal disease, coronary artery disease and myocardial infarction, diabetic ketoacidosis, chronic obstructive lung disease, who has developed diarrhea and seen Dr. Holland and was found to have hypoglycemia. The patient contributes the diarrhea secondary to chemotherapy she receives. She said she has had low-grade fevers. She did have some pelvic discomfort, but no dysuria or frequency. REVIEW OF SYSTEMS: Twelve-point review of systems performed. PAST MEDICAL HISTORY: Significant for chronic obstructive lung disease, coronary artery disease, myocardial infarction, diabetic ketoacidosis, renal disease, neuropathy, diabetes, hypertension, stage IV breast cancer with bone metastases. PAST SURGICAL HISTORY: Significant for tonsillectomy and right Port-A-Cath placement. ALLERGIES: THE PATIENT HAS NO KNOWN ALLERGIES. MEDICATIONS: The patient's medications at home are reviewed. PHYSICAL EXAMINATION: GENERAL: The patient is in bed and appears washed out. VITAL SIGNS: Temperature of 99, blood pressure is 160/70, heart rate of 93 and respiratory rate of 20. HEENT: Examination of HEENT is unremarkable. NECK: Supple. LUNGS: Have decreased breath sounds. HEART: Normal S1, S2. ABDOMEN: Soft, nontender. No rebound, guarding, or masses. LABORATORY DATA: Laboratory examination reveals a white count of 3.5, hemoglobin of 10, and platelets of 179. Chemistries are noted with a BUN of 19, creatinine of 1.0. The patient's alk phos is elevated, AST is 43, glucose is elevated. Urinalysis has many bacteria, 20-25 WBCs, presence of yeast and cloudy urine, proteinuria. The patient's chest x-ray is reported to be negative and emergency room chart is reviewed. ASSESSMENT AND PLAN: This is a 67-year-old female, who is presenting with sepsis with urine as the source versus cystitis in a patient on chemotherapy contributed to her diarrhea, also must rule out bacteremia from the Port-A-Cath, which may result in diarrhea in an immunocompromised patient without any fevers; therefore, we will check on the blood cultures, urine culture, stool cultures, and start the patient empirically on Maxipime pending panculture results, and we will make further recommendations. Seymour Louis MD
[2018-02-28] MEDS: Ciprofloxacin/Dexamethasone OTIC SUSP AS SCH (18:14)
[2018-02-28] MEDS ORDERED: Insulin Detemir 100 units/ml Vial (Levemir) SC SCH (21:45)
[2018-03-01] MEDS: Levothyroxine 175 MCG TAB PO SCH (07:00)
[2018-03-01] MEDS: Cefepime 1gm in NS 100ml 1 GM/100 ML BAG IVPB SCH ×3 (07:24→21:06)
[2018-03-01] MEDS: Budesonide 0.5 mg/2 ml Inhal Susp UD IH SCH ×2 (07:38→20:22)
[2018-03-01] MEDS: Arformoterol 15 mcg/2 ml Inh Sol IH SCH ×2 (07:38→20:22)
--- NOTE | 2018-03-01 10:44 | CP.PCM.APN ---
Subjective - Date & Time of Evaluation Date of Evaluation: 03/01/18 Time of Evaluation: 08:50 - Subjective Subjective: Pt seen and examined at bedside. She is in no acute distress. Denies dysuria, hematuria or urinary frequency/urgency. She has pain on L ear which is on and off, but denies difficulty hearing. Objective - Vital Signs/Intake and Output Vital Signs (last 24 hours): Temp Pulse Resp BP Pulse Ox 97.9 F 76 20 145/74 95 03/01/18 06:00 03/01/18 06:00 03/01/18 06:00 03/01/18 06:00 03/01/18 06:00 - Medications Medications: Current Medications Arformoterol Tartrate (Brovana) 15 mcg IH [id number] [facility] Last Admin: 03/01/18 07:38 Dose: 15 mcg Aspirin (Ecotrin) 81 mg PO DAILY [facility] Last Admin: 02/28/18 11:07 Dose: 81 mg Atorvastatin Calcium (Lipitor) 10 mg PO DAILY [facility] Last Admin: 02/28/18 11:19 Dose: Not Given Budesonide (Pulmicort Respules) 0.5 mg IH [id number] [facility] Last Admin: 03/01/18 07:38 Dose: 0.5 mg Carvedilol (Coreg) 12.5 mg PO BID [facility] Last Admin: 02/28/18 17:55 Dose: 12.5 mg Ciprofloxacin/Dexamethasone (Ciprodex Otic) 5 drop BID [facility] Last Admin: 02/28/18 18:14 Dose: 5 drop Dextrose (Dextrose 50% Inj) 0 ml IV STAT PRN; Protocol PRN Reason: Hypoglycemia Protocol Home Med (Home Med) 1 unit PO DAILY [facility] Last Admin: 02/28/18 11:47 Dose: Not Given Home Med (Home Med) 1 unit PO DAILY [facility] Dextrose (Dextrose 5% In Water 1000 Ml) 1,000 mls @ 0 mls/hr IV .Q0M PRN; Protocol PRN Reason: Hypoglycemia Protocol Cefepime HCl (Maxipime 1gm) 1 gm in 100 mls @ 100 mls/hr IVPB Q8 [facility]; Protocol Stop: 03/09/18 14:01 Last Admin: 03/01/18 07:24 Dose: 100 mls/hr Insulin Detemir (Levemir) 52 unit SC BID [facility] Last Admin: 02/28/18 17:57 Dose: 1 units Insulin Human Lispro (Humalog Low) 0 units SC ACHS [facility]; Protocol Last Admin: 02/28/18 22:00 Dose: Not Given Insulin Human Lispro (Humalog) 28 units SC TID [facility] Last Admin: 02/28/18 18:11 Dose: Not Given Lactobacillus Acidophilus (Bacid Acidophilus) 1 cap PO DAILY [facility] Last Admin: 02/28/18 11:07 Dose: 1 cap Levothyroxine Sodium (Synthroid) 175 mcg PO 0600 [facility] Last Admin: 03/01/18 07:00 Dose: 175 mcg Losartan Potassium (Cozaar) 50 mg PO DAILY [facility] Last Admin: 02/28/18 11:08 Dose: 50 mg Potassium Citrate (Urocit-K Er Tab) 5 meq PO BID [facility] Last Admin: 02/28/18 17:55 Dose: 5 meq Pregabalin (Lyrica) 50 mg PO BID [facility] Last Admin: 02/28/18 17:55 Dose: 50 mg Ropinirole HCl (Requip) 2 mg PO HS [facility] Last Admin: 02/28/18 21:42 Dose: 2 mg Sodium Chloride (Soper Nasal [place]) 1 ml NS QID PRN PRN Reason: Nasal congestion Last Admin: 02/28/18 18:15 Dose: 1 spr Tiotropium [place] (Spiriva) 18 mcg IH DAILY [facility] Last Admin: 02/28/18 11:43 Dose: Not Given Zolpidem Tartrate (Ambien) 5 mg PO HS PRN; Protocol PRN Reason: Insomnia Last Admin: 02/28/18 21:43 Dose: 5 mg - Labs Labs: 02/27/18 11:30 02/27/18 11:30 Assessment and Plan - Assessment and Plan (Free Text) Assessment: pt is 67 y.o. female w/ pmhx of breast cancer (receiving chemotherapy), diabetes, hypertension, neuropathy, Renal disease, and DKA who was sent to ED from Dr. Rich's office for generalized weakness and a hypoglycemia (BS 55). Plan: On Cefepime IV ID and ENT on consult Meds per MAR Possible DC in AM per PMD Will continue to follow
[2018-03-01] MEDS: Lactobacillus Acidophilus 500 MU Cap PO SCH (10:47)
[2018-03-01] MEDS: Insulin Detemir 100 units/ml Vial (Levemir) SC SCH ×2 (10:47→17:56)
[2018-03-01] MEDS: Ciprofloxacin/Dexamethasone OTIC SUSP AS SCH ×2 (10:48→17:55)
[2018-03-01] MEDS: VITAMIN D3 PO SCH (10:49)
[2018-03-01] MEDS: Insulin Lispro 1 UNITS/0.01 ML SC SCH ×2 (10:49→18:06)
[2018-03-01] MEDS: FEBUXOSTAT 40 MG PO SCH (10:49)
[2018-03-01] MEDS: CALCIUM CARBONATE PO SCH (10:49)
[2018-03-01] MEDS: Insulin Lispro (humaLOG) LOW Coverage SC SCH ×3 (10:50→18:05)
[2018-03-01] MEDS: Tiotropium 18 mcg Cap For Inhalation IH SCH (10:50)
--- NOTE | 2018-03-01 10:53 | PN ---
DATE: 03/01/2018 SUBJECTIVE: This is a 67-year-old female with breast cancer on chemotherapy, admitted with urinary tract infection, lethargy, cough, sputum production and shortness of breath. The patient is markedly better today with nebulizer therapy, on IV antibiotics. She was seen in consultation with Dr. Louis. She is on Cefepime for urinary tract infection. She was also see on consultation by Dr. Nielson. She has a recurrent left ear infection. She is on drops, ear drops and oral antibiotics. She is well. She is ambulatory. She is moving. Her chest is less congested. She has less pain in her ear. Vital signs are stable. She is afebrile. Continue medical treatment. Niko Fisher MD
--- NOTE | 2018-03-01 13:56 | PN ---
DATE: 03/01/2018 SUBJECTIVE: The patient is in bed, in no acute distress. PHYSICAL EXAMINATION: VITAL SIGNS: Temperature is 98, blood pressure 140/70, respiratory rate 20, heart rate of 82. HEENT: Unremarkable. NECK: Supple. LUNGS: Decreased breath sounds. HEART: Normal S1, S2. ABDOMEN: Soft. LABORATORY DATA: White count of 3.5, hemoglobin of 10 and chemistries are noted. Microbiology, blood cultures are negative. Urine cultures are negative. Urinalysis is noted. Review of orders reveals the patient to be on cefepime. Dr. Fisher's note is reviewed. ASSESSMENT AND PLAN: This is a 67-year-old female, seen earlier today, presenting with sepsis and urinary tract infection versus cystitis. The patient had chemotherapeutic diarrhea. Negative blood cultures. We will continue the cefepime. We may be able to switch to p.o. antibiotics and thus far, initially the blood and urine cultures were both negative, on cefepime day #2, may be able to switch to p.o. antibiotics. Seymour Louis MD
--- NOTE | 2018-03-01 17:52 | CON ---
DATE: 03/01/2018 SUBJECTIVE: This is a 67-year-old woman with widely metastatic breast cancer to the bones. She is now receiving Taxotere chemotherapy on a weekly basis and she just received her second cycle or fourth injection. She gets two out of three weeks chemotherapy and her CEA level is starting to come down very nicely. She had also recently received radiation therapy to her thoracic spine for back pain due to the cancer. In any event, the patient has been having increasing diarrhea. Her sugars are up and down. Sometimes, they go up to 300 and she came to the office yesterday feeling very, very weak. Her sugar had been 55 on waking up in the morning and in the office, her blood pressure was alright. She was not too dehydrated or that way orthostatic, but quite weak and we called the ambulance to bring her to the hospital. PHYSICAL EXAMINATION: SKIN: No petechiae. No bruises. HEENT: Anicteric. Nodes nonpalpable in the axillary, cervical, supraclavicular, inguinal regions. LUNGS: Clear at present. No vertebral tenderness. HEART: S1, S2. ABDOMEN: Shows no organomegaly. EXTREMITIES: No edema. CENTRAL NERVOUS SYSTEM: No focal finding. PLAN: The patient was found to have a urinary tract infection. She was dehydrated. Her glucose was not in control and this morning when I saw her, she is much better. She is much more comfortable. She feels much better. She is due for chemotherapy probably next week for her third round. She is getting diarrhea from the Taxotere and I will have to possibly adjust the doses of the chemotherapy, but at this point, she seems to feel much better. Deandre Rich MD
[2018-03-02] MEDS: Cefepime 1gm in NS 100ml 1 GM/100 ML BAG IVPB SCH ×2 (00:13→09:30)
[2018-03-02] MEDS: Levothyroxine 175 MCG TAB PO SCH (05:51)
[2018-03-02] MEDS: Arformoterol 15 mcg/2 ml Inh Sol IH SCH (07:14)
[2018-03-02] MEDS: Budesonide 0.5 mg/2 ml Inhal Susp UD IH SCH (07:14)
[2018-03-02 08:01] VITALS: BP 167/91; PULSE 89; TEMP 97.9; O2SAT 97
[2018-03-02] MEDS: Insulin Lispro (humaLOG) LOW Coverage SC SCH (08:42)
--- NOTE | 2018-03-02 09:03 | DS ---
HISTORY OF PRESENT ILLNESS: The patient is 67-year-old white female admitted on 02/28/2018. The patient has history of breast cancer being treated with chemotherapy. The patient was admitted with dehydration, urinary tract infection, weakness, fatigue, cough, sputum production and bronchitis. The patient is seen , Dr. Louis for Infectious Disease. The patient received bronchodilator therapy, antibiotics and hydration. She is doing markedly better. She is improved. Vital signs are stable. The patient will be discharged home today to be followed up next week as an outpatient. She is afebrile today. Blood pressure 167/91. Kidney function is . Blood sugar is 181. The patient will be followed. The patient is also seen Dr. Nielson because of a chronic left ear infection. She is on Ciprodex. She will continue on that at home and also finish a course of p.o. antibiotics for urinary tract infection at home. FINAL DISCHARGE DIAGNOSES: Left chronic ear infection, bronchitis, urinary tract infection, dehydration, weakness secondary to chemotherapy. Niko Fisher MD
[2018-03-02] MEDS: FEBUXOSTAT 40 MG PO SCH (09:19)
[2018-03-02] MEDS: Lactobacillus Acidophilus 500 MU Cap PO SCH (09:19)
[2018-03-02] MEDS: VITAMIN D3 PO SCH (09:22)
[2018-03-02] MEDS: Insulin Lispro 1 UNITS/0.01 ML SC SCH (09:22)
[2018-03-02] MEDS: CALCIUM CARBONATE PO SCH (09:22)
[2018-03-02] MEDS: Insulin Detemir 100 units/ml Vial (Levemir) SC SCH (09:23)
[2018-03-02] MEDS: Ciprofloxacin/Dexamethasone OTIC SUSP AS SCH (09:25)
--- NOTE | 2018-03-02 13:27 | CP.PCM.PN ---
Subjective - Date & Time of Evaluation Date of Evaluation: 03/02/18 Time of Evaluation: 10:40 - Subjective Subjective: No fevers, not in distress. Objective - Vital Signs/Intake and Output Vital Signs (last 24 hours): Temp Pulse Resp BP Pulse Ox 97.9 F 89 20 167/91 H 97 03/02/18 06:00 03/02/18 09:26 03/02/18 06:00 03/02/18 09:26 03/02/18 06:00 Intake and Output: 03/02/18 03/02/18 06:59 18:59 Intake Total 540 Balance 540 - Medications Medications: Current Medications Arformoterol Tartrate (Brovana) 15 mcg IH [id number] [facility] Last Admin: 03/02/18 07:14 Dose: 15 mcg Aspirin (Ecotrin) 81 mg PO DAILY [facility] Last Admin: 03/02/18 09:19 Dose: 81 mg Atorvastatin Calcium (Lipitor) 10 mg PO DAILY [facility] Last Admin: 03/02/18 09:27 Dose: Not Given Budesonide (Pulmicort Respules) 0.5 mg IH [id number] [facility] Last Admin: 03/02/18 07:14 Dose: 0.5 mg Carvedilol (Coreg) 12.5 mg PO BID [facility] Last Admin: 03/02/18 09:25 Dose: 12.5 mg Ciprofloxacin/Dexamethasone (Ciprodex Otic) 5 drop BID [facility] Last Admin: 03/02/18 09:25 Dose: 5 drop Dextrose (Dextrose 50% Inj) 0 ml IV STAT PRN; Protocol PRN Reason: Hypoglycemia Protocol Home Med (Home Med) 1 unit PO DAILY [facility] Last Admin: 03/02/18 09:22 Dose: Not Given Home Med (Home Med) 1 unit PO DAILY [facility] Last Admin: 03/02/18 09:19 Dose: 1 unit Dextrose (Dextrose 5% In Water 1000 Ml) 1,000 mls @ 0 mls/hr IV .Q0M PRN; Protocol PRN Reason: Hypoglycemia Protocol Cefepime HCl (Maxipime 1gm) 1 gm in 100 mls @ 100 mls/hr IVPB Q8 [facility]; Protocol Stop: 03/09/18 14:01 Last Admin: 03/02/18 09:30 Dose: 100 mls/hr Insulin Detemir (Levemir) 52 unit SC BID [facility] Last Admin: 03/02/18 09:23 Dose: 52 units Insulin Human Lispro (Humalog Low) 0 units SC ACHS [facility]; Protocol Last Admin: 03/02/18 08:42 Dose: 1 unit Insulin Human Lispro (Humalog) 28 units SC TID [facility] Last Admin: 03/02/18 09:22 Dose: Not Given Lactobacillus Acidophilus (Bacid Acidophilus) 1 cap PO DAILY [facility] Last Admin: 03/02/18 09:19 Dose: 1 cap Levothyroxine Sodium (Synthroid) 175 mcg PO 0600 [facility] Last Admin: 03/02/18 05:51 Dose: 175 mcg Losartan Potassium (Cozaar) 50 mg PO DAILY [facility] Last Admin: 03/02/18 09:26 Dose: 50 mg Potassium Citrate (Urocit-K Er Tab) 5 meq PO BID [facility] Last Admin: 03/02/18 09:19 Dose: 5 meq Pregabalin (Lyrica) 50 mg PO BID [facility] Last Admin: 03/02/18 09:19 Dose: 50 mg Ropinirole HCl (Requip) 2 mg PO HS [facility] Last Admin: 03/01/18 21:06 Dose: 2 mg Sodium Chloride ([place] Nasal Odd) 1 ml NS QID PRN PRN Reason: Nasal congestion Last Admin: 02/28/18 18:15 Dose: 1 spr Tiotropium [place] (Spiriva) 18 mcg IH DAILY [facility] Last Admin: 03/01/18 10:50 Dose: Not Given Zolpidem Tartrate (Ambien) 5 mg PO HS PRN; Protocol PRN Reason: Insomnia Last Admin: 03/01/18 22:57 Dose: 5 mg - Labs Labs: 02/27/18 11:30 02/27/18 11:30 - Constitutional Appears: Chronically Ill - Head Exam Head Exam: NORMAL INSPECTION - Respiratory Exam Respiratory Exam: Decreased Breath Sounds - Cardiovascular Exam Cardiovascular Exam: +S1, +S2 - GI/Abdominal Exam GI & Abdominal Exam: Soft. absent: Tenderness Assessment and Plan - Assessment and Plan (Free Text) Plan: Assessment consider sepsis due to UTI, clinically improving breast cancer on chemotherapy history of left ear infection Plan on Cefepime day 3; can be switched to PO antibiotics to complete another 5-7 days of therapy
--- NOTE | 2018-03-05 09:54 | CP.PCM.CON ---
History of Present Illness - History of Present Illness History of Present Illness: Patient well known to service , was seen as outpatient on 02/01/18 for left ear infection. She was treated with Ciprodex / Augmentin with relief of symptoms. Once off meds , symptoms returned. Patient currently admitted for UTI - PMHx positive for stage 4 breast carcinoma - currently recieving chemotherapy States left otalgia / otorrhea . Also c/o nasal congestion Denies any other current ENT complaints Review of Systems - EENT Ears: As Per HPI Nose/Mouth/Throat: As Per HPI Past Patient History - Infectious Disease Hx of Infectious Diseases: None - Tetanus Immunizations Tetanus Immunization: Unknown - Past Social History Smoking Status: Former Smoker - CARDIAC Hx Cardiac Disorders: Yes (silent mi) Hx Hypercholesterolemia: Yes Hx Hypertension: Yes - PULMONARY Hx Respiratory Disorders: Yes Hx Asthma: Yes Hx Chronic Obstructive Pulmonary Disease (COPD): Yes - NEUROLOGICAL Hx Neurological Disorder: Yes (neuropathy numbness hands and feet) Other/Comment: vertigo - HEENT Hx HEENT Problems: Yes Hx Blind: No Hx Cataracts: Yes Other/Comment: peeling skin to lower back from radiation trreatments healed - RENAL Hx Chronic Kidney Disease: Yes Hx Kidney Stones: Yes - ENDOCRINE/METABOLIC Hx Endocrine Disorders: Yes (dka) Hx Diabetes Mellitus Type 2: Yes Hx Hypothyroidism: Yes - HEMATOLOGICAL/ONCOLOGICAL Hx Blood Disorders: No Hx AIDS: No Hx Anemia: No Hx Cancer: Yes (Left breast cancer) Hx Cirrhosis: No Hx Hepatitis A: No Hx Hepatitis B: No Hx Hepatitis C: No Hx Human Immunodeficiency Virus (HIV): No Hx Metastesis: No Hx Shingles: No Hx Unexplained Bleeding: No Other/Comment: left breast ca dx 02/2014 had hormone therapy tumor shrunk 20 16,mets to bone in bone marrow, vertrbrae, ribs, shoulder, had 10 days of radiation trreatments in nov 2017 now started back up on chemo, is in her 4th week of chemo - INTEGUMENTARY Hx Dermatological Problems: Yes Hx Eczema: Yes (elbows) - MUSCULOSKELETAL/RHEUMATOLOGICAL Hx Musculoskeletal Disorders: Yes Hx Falls: No Hx Osteoarthritis: Yes (hips left knee) Hx Unsteady Gait: Yes (cane) - GASTROINTESTINAL Hx Gastrointestinal Disorders: Yes (obese) Hx Gastroesophageal Reflux: Yes - GENITOURINARY/GYNECOLOGICAL Hx Genitourinary Disorders: Yes - PSYCHIATRIC Hx Emotional Abuse: No Hx Physical Abuse: No Hx Substance Use: No - SURGICAL HISTORY Hx Surgeries: Yes (tonsillectomy) Hx Amputation: No Hx Appendectomy: No Hx Cardiac Catheterization: No Hx Cholecystectomy: No Hx Coronary Stent: No Hx Gastric Bypass Surgery: No Hx Hysterectomy: No Hx Joint Replacement: No Hx Kidney Transplant: No Hx Liver Transplant: No Hx Mastectomy: No Hx Musculoskeletal Surgery: No Hx Open Heart Surgery: No Hx Orthopedic Surgery: No Hx Splenectomy: No Hx Valve Replacement: No Other/Comment: rcw pac - ANESTHESIA Hx Anesthesia Reactions: No Hx Malignant Hyperthermia: No Meds Home Medications: Home Medication List Medication Instructions Recorded Confirmed Type Arformoterol [Brovana] 15 mcg IH [id number] neb 03/02/18 Rx Budesonide [Pulmicort Respules] 0.5 mg IH [id number] neb 03/02/18 Rx Ciprofloxacin/Dexamethasone 5 drop BID bottle 03/02/18 Rx [Ciprodex Otic] Insulin Lispro-LOW [humALOG LOW] 0 units SC ACHS ml 03/02/18 Rx Lactobacillus Acidophilus [Bacid 1 cap PO DAILY cap 03/02/18 Rx Acidophilus] Potassium Citrate [Urocit-K ER Tab] [address] 03/02/18 Rx Pregabalin [Lyrica] 50 mg PO BID cap 03/02/18 Rx Sodium Chloride Nasal [place] [[place] 1 ml NS QID PRN bottle 03/02/18 Rx Nasal [place]] Tiotropium [Spiriva] 18 mcg IH DAILY cap 03/02/18 Rx Zolpidem [Ambien] 5 mg PO HS PRN tab 03/02/18 Rx Allergies/Adverse Reactions: Allergies Allergy/AdvReac Type Severity Reaction Status Date / Time No Known Allergies Allergy Verified 06/09/16 13:14 Physical Exam - Constitutional Appears: Non-toxic, No Acute Distress - Head Exam Head Exam: ATRAUMATIC, NORMAL INSPECTION, NORMOCEPHALIC - ENT Exam Additional comments: Ears - AD - EAC / TM wnl , no fluid , - EAC erythematous / purulence noted / TM erythematous Nose - mucosa atrophic , dried blood on right / DNS - Expanded ENT Exam Expanded Mouth exam: normal external inspection Throat exam: Normal Inspection - Neck Exam Neck exam: Positive for: Normal Inspection - Respiratory Exam Respiratory Exam: NORMAL BREATHING PATTERN - Neurological Exam Neurological exam: Alert, CN II-XII Intact, Oriented x3 - Psychiatric Exam Psychiatric exam: Normal Affect, Normal Mood - Skin Skin Exam: Dry, Intact, Normal Color Results - Vital Signs Recent Vital Signs: Last Vital Signs Temp 97.9 F 03/02/18 06:00 Pulse 89 03/02/18 09:26 Resp 20 03/02/18 06:00 BP 167/91 H 03/02/18 09:26 Pulse Ox 97 03/02/18 06:00 - Labs Result Diagrams: 02/27/18 11:30 02/27/18 11:30 Assessment & Plan (1) DNS (deviated nasal septum) Status: Acute (2) Atrophic rhinitis Status: Acute Comment: Humidified O2 , nasal saline QID (3) Acute reactive otitis externa of left ear Status: Acute Comment: resume Ciprodex 5 drops BID x 1 week (4) Acute suppurative otitis media of left ear Status: Acute Comment: continue antibiotics , patient to follow up as outpatient
--- NOTE | 2018-03-08 11:42 | PQF ---
PROVIDER RESPONSE TEXT: Sepsis found during this admission REVIEWER QUERY TEXT: Rule Out Sepsis Clarification Rule out Sepsis is documented in the Medical Record. Please clarify whether: -- Patient has sepsis - Please document confirmed, suspected or probable causative organism - Please document confirmed, suspected or probable localized infection - Please clarify if sepsis is related to a device - Please clarify if sepsis was present on admission -- Sepsis was ruled out (include corresponding diagnosis for patient?s clinical picture and treatment ) -- Patient had sepsis which is resolved -- Other, please specify The patient's Clinical Indicators include: ID lactation consultant has documented that patient has sepsis with urine as source as patient is immunocomprom ised being on chemotherapy. Please document if you concur with this diagnosis. Query created by: Carol Henry on 03/01/2018 2:01 PM Electronically signed by: Niko Fisher MD 03/08/2018 11:39 AM
== END 2018-03-02 14:27 | disposition home or self-care (01) | DRG 637 ==
LOC: ED 10:40 → ERH 12:57 → 5RNO 19:48 → OBSVTOIN 02-28 11:46
PROVIDERS: ADMIT Internal Medicine; ATTEND Internal Medicine
DX: E11.649 Type 2 diabetes mellitus with hypoglycemia without coma (principal); A41.9 Sepsis, unspecified organism; N39.0 Urinary tract infection, site not specified; C79.51 Secondary malignant neoplasm of bone; K52.1 Toxic gastroenteritis and colitis; T45.1X5A Adverse effect of antineoplastic and immunosuppressive drugs, initial encounter; E86.0 Dehydration; C50.919 Malignant neoplasm of unspecified site of unspecified female breast; E11.40 Type 2 diabetes mellitus with diabetic neuropathy, unspecified; J44.9 Chronic obstructive pulmonary disease, unspecified; I10 Essential (primary) hypertension; E03.9 Hypothyroidism, unspecified; I25.10 Atherosclerotic heart disease of native coronary artery without angina pectoris; G89.3 Neoplasm related pain (acute) (chronic); H66.92 Otitis media, unspecified, left ear; D70.9 Neutropenia, unspecified; R50.81 Fever presenting with conditions classified elsewhere; M54.9 Dorsalgia, unspecified; Z79.4 Long term (current) use of insulin; I25.2 Old myocardial infarction; Z79.82 Long term (current) use of aspirin

== ENCOUNTER 2018-06-06 09:51 | Outpatient (CLI) | payer MEDICARE, OTHER | END 2018-06-06 09:52 | disposition home or self-care (01) | LOC: RAD 09:51 ==